=== PATIENT | male | born 1945 | race Caucasian/White ===

== ENCOUNTER → 2019-01-29 | Outpatient (CLI) | payer OTHER ==
[~2019-01-29] MED LIST: LIPITOR10 MG PO; PRILOSEC 20 MG20 MG PO; VALIUM10 MG PO; VITAMIN D400 UNI1 PO
== END ==
LOC: MRI 12-18 10:04
DX: N28.1 Cyst of kidney, acquired (principal); N28.89 Other specified disorders of kidney and ureter

== ENCOUNTER → 2019-09-17 | Outpatient (CLI) | payer OTHER | LOC: MRI 07:11 | DX: M47.26 Other spondylosis with radiculopathy, lumbar region (principal); M51.46 Schmorl's nodes, lumbar region; M43.16 Spondylolisthesis, lumbar region; M51.16 Intervertebral disc disorders with radiculopathy, lumbar region; M85.68 Other cyst of bone, other site; M25.78 Osteophyte, vertebrae; M12.88 Other specific arthropathies, not elsewhere classified, other specified site; M48.061 Spinal stenosis, lumbar region without neurogenic claudication ==

== ENCOUNTER → 2020-05-06 | Outpatient (CLI) | payer OTHER | LOC: ULTRA 07:36 | PROVIDERS: ATTEND Family Medicine | DX: N28.1 Cyst of kidney, acquired (principal); K76.89 Other specified diseases of liver ==

== ENCOUNTER → 2020-05-20 | Outpatient (CLI) | payer OTHER | LOC: CAT 09:37 | PROVIDERS: ATTEND Family Medicine | DX: K76.0 Fatty (change of) liver, not elsewhere classified (principal); N28.1 Cyst of kidney, acquired; R63.4 Abnormal weight loss; K76.89 Other specified diseases of liver ==

== ENCOUNTER → 2020-05-27 | Outpatient (CLI) | payer OTHER | LOC: CAT 14:39 | PROVIDERS: ATTEND Family Medicine | DX: R91.1 Solitary pulmonary nodule (principal); R49.0 Dysphonia ==

== ENCOUNTER → 2020-12-24 | Outpatient (CLI) | payer OTHER | LOC: ULTRA 09:53 | PROVIDERS: ATTEND Family Medicine | DX: R60.0 Localized edema (principal); M79.89 Other specified soft tissue disorders ==

== ENCOUNTER → 2021-01-05 | Outpatient (CLI) | payer OTHER ==
[~2021-01-05] VITALS: Ht 172.7 cm; Wt 66.7 kg
[~2021-01-05] MED LIST changes: +BENADRYL25 MG PO; +CARBIDOPA-LEVO1 EAC9 PO; +GLUCOSAMINE CH1 EA10 PO; +HYTRIN 2MG CAPSU2 M1 PO; +LORAZEPAM 1 MG T1 MG PO; +OCUVEL CAPSULE1 EACH PO; +OCUVITE ADULT1 EAC1 PO
[2021-01-05 10:04] VITALS: BP 101/62
--- NOTE | 2021-01-05 10:25 | NUR ---
Pain Clinic Assessment: 1. History of Osteoarthritis: R KNEE History of Rheumatoid Arthritis: 2. Height: 5 ft. 8 in. 172.7 cm. Weight: 147.0 lb. oz. 66.679 kg. Patient's BMI: 22.4 3. Vital Signs: BP: 101/62 Pulse: 71 Resp: 16 Temp: 02 Sat: 97 ECG Mon: 4. Pain Intensity: 5 5. Fall Risk: Dizziness: N Needs help standing or walking: N Fallen in the last 3 months: N Fall risk comments: 6. Patient on Blood Thinner: None 7. History of Hypertension: N 8. Opioid Therapy greater than 6 weeks: N Opiate Contract Signed: 9. Risk Assessment Tool Provided: 0 LOW RISK 10. Functional Assessment Tool: 11. Recreational Drug Use: Never Drug Type: Tobacco Use: Unknown if Ever Smoked Tobacco Type: Amount or Packs/day: How Many Years: Alcohol Use: Yes Frequency: Weekly Quant: 1-2
== END ==
LOC: PAIN 07:15
PROVIDERS: ATTEND Anesthesiology Pain Medicine
DX: M96.1 Postlaminectomy syndrome, not elsewhere classified (principal); Z79.899 Other long term (current) drug therapy; Z79.891 Long term (current) use of opiate analgesic

== ENCOUNTER → 2021-01-15 | Outpatient (CLI) | payer OTHER ==
[~2021-01-15] VITALS: Ht 172.7 cm; Wt 66.7 kg
[2021-01-15 12:30] VITALS: BP 123/81
--- NOTE | 2021-01-15 12:33 | NUR ---
Pain Clinic Assessment: 1. History of Osteoarthritis: R KNEE History of Rheumatoid Arthritis: Not Applicable 2. Height: 5 ft. 8 in. 172.7 cm. Weight: 147.0 lb. oz. 66.679 kg. Patient's BMI: 22.4 3. Vital Signs: BP: 123/81 Pulse: 57 Resp: 16 Temp: 02 Sat: 99 ECG Mon: 4. Pain Intensity: 2 5. Fall Risk: Dizziness: N Needs help standing or walking: N Fallen in the last 3 months: N Fall risk comments: 6. Patient on Blood Thinner: None 7. History of Hypertension: N 8. Opioid Therapy greater than 6 weeks: N Opiate Contract Signed: 9. Risk Assessment Tool Provided: 0 LOW RISK 10. Functional Assessment Tool: 11. Recreational Drug Use: Never Drug Type: Tobacco Use: Never Smoker Tobacco Type: Amount or Packs/day: How Many Years: Alcohol Use: Yes Frequency: Weekly Quant: 1-2
== END | disposition home or self-care (01) ==
LOC: PAIN 09:10
PROVIDERS: ATTEND Anesthesiology Pain Medicine
DX: M54.16 Radiculopathy, lumbar region (principal); M48.061 Spinal stenosis, lumbar region without neurogenic claudication; G89.29 Other chronic pain; Z98.890 Other specified postprocedural states; Z79.899 Other long term (current) drug therapy

== ENCOUNTER → 2021-04-02 | Outpatient (CLI) | payer OTHER | LOC: SJCVCIMAG 10:13 | PROVIDERS: ATTEND Internal Medicine Cardiovascular Disease | DX: E78.00 Pure hypercholesterolemia, unspecified (principal); E78.5 Hyperlipidemia, unspecified; G20 Parkinson's disease; R06.00 Dyspnea, unspecified; R53.83 Other fatigue; M21.371 Foot drop, right foot ==